=== PATIENT | female | born 1995 | race Asian ===

== ENCOUNTER 2023-05-18 19:50 | Emergency (ER) | payer BC ==
[~2023-05-18] VITALS: Ht 154.9 cm; Wt 50.0 kg
[2023-05-18 20:10] VITALS: TEMP 98.2; O2SAT 98
[2023-05-18 21:30] LABS: CLARITY URINE CLOUDY (CLEAR); COLOR URINE YELLOW (YELLOW); GLUCOSE URINE NEGATIVE (NEGATIVE); KETONES URINE NEGATIVE (NEGATIVE); LEUKOCYTE ESTERASE URINE 2+ (NEGATIVE); NITRITE URINE NEGATIVE (NEGATIVE); OCCULT BLOOD URINE NEGATIVE (NEGATIVE); PH URINE 6.5 (4.5-8.0); PROTEIN URINE NEGATIVE (NEGATIVE); SPECIFIC GRAVITY URINE 1.025 (1.005-1.030); UROBILINOGEN URINE 0.2 E.U./dL (0.2-1.0)
[2023-05-18] MEDS ORDERED: NITR-87 MT (21:44)
[2023-05-18] MEDS ORDERED: PHEN-815 MT (21:44)
[2023-05-18] MEDS ORDERED: NITROFURANTOIN 100MG M/M CAPSULE PO ONE (21:45)
[2023-05-18] MEDS ORDERED: PHENAZOPYRIDINE HCL 100MG TABLET PO ONE (21:45)
[2023-05-18 22:13] VITALS: BP 112/60; PULSE 80; RESP 18
[2023-05-18 23:02] LABS: SQUAMOUS EPITHELIAL CELL URINE 2+ /lpf (RARE/1+)
[2023-05-18 23:03] LABS: WBC URINE 50-100 /hpf (0-2)
[2023-05-18 23:04] LABS: BACTERIA URINE 3+; CALCIUM OXALATE CRYSTALS URINE 1+ /lpf; RBC URINE 0-2 /hpf (0-2)
== END 2023-05-18 22:14 | disposition home or self-care (01) ==
LOC: ER 19:50
DX: N39.0 Urinary tract infection, site not specified (principal); R30.0 Dysuria
CPT/HCPCS: 81003; 99283

== ENCOUNTER 2023-09-02 16:17 | Emergency (ER) | payer BC ==
[~2023-09-02] VITALS: Ht 154.9 cm; Wt 49.8 kg
[~2023-09-02 16:17] MED LIST: NITR-87 MT; PHEN-815 MT
[2023-09-02 16:21] VITALS: O2SAT 99
[2023-09-02] MEDS ORDERED: IBUP-2028 MT (17:52)
[2023-09-02] MEDS ORDERED: BENZ100C86 MT (17:52)
[2023-09-02 19:24] VITALS: BP 122/61; PULSE 55; RESP 16; TEMP 98.2
== END 2023-09-02 19:34 | disposition home or self-care (01) ==
LOC: ER 16:17
DX: B34.9 Viral infection, unspecified (principal); Z20.822 Contact with and (suspected) exposure to COVID-19
CPT/HCPCS: 71045; 87426; 99284